=== PATIENT | male | born 1985 | race African-American/Black ===

== ENCOUNTER 2020-06-04 11:32 | Emergency (ER) | payer MEDICAID, SELFPAY ==
[~2020-06-04] VITALS: Ht 177.8 cm; Wt 81.2 kg
[~2020-06-04 11:32] MED LIST: IBUPROFEN600 MG ORAL; IBUPROFEN600 MG PO; NORCO 5-325 TA1 EACH ORAL
[2020-06-04 11:50] VITALS: BP 115/73
[2020-06-04 12:25] LABS: BASOPHILS % (AUTO) 0.5 % (0.0-2.0); EOSINOPHILS % (AUTO) 0.5 % (0.0-3.0); HEMATOCRIT 48.9 % (42.0-52.0); HEMOGLOBIN 16.9 G/DL (14.2-18.0); LYMPHOCYTES % (AUTO) 12.4 % (20.0-45.0); MEAN CORPUSCULAR VOLUME 88 FL (80-99); NEUTROPHILS % (AUTO) 81.6 % (45.0-75.0); PLATELET COUNT 272 K/UL (150-450); RED BLOOD COUNT 5.59 M/UL (4.70-6.10); RED CELL DISTRIBUTION WIDTH 13.7 % (11.6-14.8); WHITE BLOOD COUNT 11.4 K/UL (4.8-10.8)
[2020-06-04] MEDS ORDERED: Ketorolac 30mg Inj IV ONE (12:30)
[2020-06-04 13:05] LABS: ANION GAP 8 mmol/L (5-15); BLOOD UREA NITROGEN 12 mg/dL (7-18); CALCIUM 9.5 MG/DL (8.5-10.1); CARBON DIOXIDE 28 MMOL/L (21-32); CHLORIDE 99 MMOL/L (98-107); CREATININE 1.3 MG/DL (0.55-1.30); POTASSIUM 3.4 MMOL/L (3.5-5.1); SODIUM 135 MMOL/L (136-145)
[2020-06-04 13:10] LABS: ALANINE AMINOTRANSFERASE 36 U/L (12-78); ALBUMIN 4.2 G/DL (3.4-5.0); ALBUMIN/GLOBULIN RATIO 0.9 (1.0-2.7); ALKALINE PHOSPHATASE 95 U/L (46-116); ASPARTATE AMINO TRANSFERASE 65 U/L (15-37); BILIRUBIN,TOTAL 0.7 MG/DL (0.2-1.0)
[2020-06-04] MEDS ORDERED: DICYCLOMINE HCL10 MG ORAL (13:48)
[2020-06-04] MEDS ORDERED: FAMOTIDINE20 MG ORAL (13:48)
[2020-06-04] MEDS ORDERED: ONDANSETRON ODT4 MG BC (13:48)
[2020-06-04 14:07] VITALS: BP 122/76
--- NOTE | 2020-06-05 08:08 | Emergency Room Report ---
History of Present Illness General Chief Complaint: Abdominal Pain Source: Family Member Present Illness HPI 35-year-old male presents for evaluation. Brought in by family from home. Complaining of abdominal pain with nausea and vomiting for the last 3 days. Pain is epigastric, dull, 10 out of 10, nonradiating. Unable to keep any food down. Denies any diarrhea. Denies any fevers or chills. Denies chest pain. Allergies: Coded Allergies: No Known Allergies (Unverified , 09/11/13) COVID-19 Screening Contact w/high risk pt: No Experienced COVID-19 symptoms?: No COVID-19 Testing performed SURVEYOR CHAIN HELPER: No Patient History Past Medical History: none Past Surgical History: none Pertinent Family History: none Social History: Denies: smoking, alcohol use, drug use Immunizations: UTD Reviewed Nursing Documentation: PMH: Agreed; PSxH: Agreed Nursing Documentation-PMH Past Medical History: No History, Except For Review of Systems All Other Systems: negative except mentioned in HPI Physical Exam Vital Signs Date Time Temp Pulse Resp B/P (MAP) Pulse Ox O2 Delivery O2 Flow Rate FiO2 06/04/20 11:42 81 18 95/77 (83) 95 Room Air 06/04/20 11:50 97.6 Sp02 EP Interpretation: reviewed, normal General Appearance: no apparent distress, alert, GCS 15, non-toxic Head: normocephalic, atraumatic Eyes: bilateral eye normal inspection, bilateral eye PERRL ENT: hearing grossly normal, normal pharynx, no angioedema, normal voice Neck: full range of motion, supple/symm/no masses Respiratory: chest non-tender, lungs clear, normal breath sounds, speaking full sentences Cardiovascular #1: regular rate, rhythm, no edema Cardiovascular #2: 2+ carotid (R), 2+ carotid (L), 2+ radial (R), 2+ radial (L), 2+ dorsalis pedis (R), 2+ dorsalis pedis (L) Gastrointestinal: normal bowel sounds, soft, non-distended, no guarding, no rebound, tenderness - Epigastric Rectal: deferred Genitourinary: normal inspection, no CVA tenderness Musculoskeletal: back normal, normal range of motion, gait/station normal, non- tender Neurologic: alert, motor strength/tone normal, oriented x3, sensory intact, responsive, speech normal Psychiatric: judgement/insight normal, memory normal, mood/affect normal, no suicidal/homicidal ideation Reflexes: 3+ bicep (R), 3+ bicep (L), 3+ tricep (R), 3+ tricep (L), 3+ knee (R), 3+ knee (L) Lymphatic: no adenopathy Medical Decision Making Diagnostic Impression: Primary Impression: Nausea and vomiting Qualified Codes: R11.2 - Nausea with vomiting, unspecified ER Course Hospital Course 35-year-old male presents to ED with epigastric pain with N/V. differential diagnosis: gastritis, SBO, cholecystits Clinical course Patient placed on stretcher. On side puller. After initial history and physical I ordered labs, IV fluids, pepcid, zofran Labs - minimal leukocytosis, no electrolyte abnormalities, LFTs normal On reassessment patient feels better. Pain resolved. Abdomen soft. Tolerating p.o. intake. Safe for discharge with close outpatient follow-up states he has a PMD I feel this is a highly complex case requiring extensive working including EKG/Rhythm strip, Xray/CT/US, Blood/urine lab work, repeat exams while in ED, and administration of strong opiates/narcotics for pain control, admission to hospital or close patient follow up. Diagnosis - nausea and vomiting Stable and discharged to home with prescriptions for pepcid, zofran, bentyl. Followup with PMD. Return to ED if symptoms recur or worsen Laboratory Tests Test 06/04/20 11:56 White Blood Count 11.4 K/UL (4.8-10.8) H Red Blood Count 5.59 M/UL (4.70-6.10) Hemoglobin 16.9 G/DL (14.2-18.0) Hematocrit 48.9 % (42.0-52.0) Mean Corpuscular Volume 88 FL (80-99) Mean Corpuscular Hemoglobin 30.3 PG (27.0-31.0) Mean Corpuscular Hemoglobin Concent 34.6 G/DL (32.0-36.0) Red Cell Distribution Width 13.7 % (11.6-14.8) Platelet Count 272 K/UL (150-450) Mean Platelet Volume 5.9 FL (6.5-10.1) L Neutrophils (%) (Auto) 81.6 % (45.0-75.0) H Lymphocytes (%) (Auto) 12.4 % (20.0-45.0) L Monocytes (%) (Auto) 5.0 % (1.0-10.0) Eosinophils (%) (Auto) 0.5 % (0.0-3.0) Basophils (%) (Auto) 0.5 % (0.0-2.0) Sodium Level 135 MMOL/L (136-145) L Potassium Level 3.4 MMOL/L (3.5-5.1) L Chloride Level 99 MMOL/L (98-107) Carbon Dioxide Level 28 MMOL/L (21-32) Anion Gap 8 mmol/L (5-15) Blood Urea Nitrogen 12 mg/dL (7-18) Creatinine 1.3 MG/DL (0.55-1.30) Estimat Glomerular Filtration Rate > 60 mL/min (>60) Glucose Level 76 MG/DL (74-106) Calcium Level 9.5 MG/DL (8.5-10.1) Total Bilirubin 0.7 MG/DL (0.2-1.0) Aspartate Amino Transf (AST/SGOT) 65 U/L (15-37) H Alanine Aminotransferase (ALT/SGPT) 36 U/L (12-78) Alkaline Phosphatase 95 U/L (46-116) Total Protein 8.7 G/DL (6.4-8.2) H Albumin 4.2 G/DL (3.4-5.0) Globulin 4.5 g/dL Albumin/Globulin Ratio 0.9 (1.0-2.7) L Lipase 80 U/L (73-393) Last Vital Signs Date Time Temp Pulse Resp B/P (MAP) Pulse Ox O2 Delivery O2 Flow Rate FiO2 06/04/20 14:07 97.8 88 19 122/76 99 Room Air Status: improved Disposition: HOME, SELF-CARE Condition: Stable Scripts Dicyclomine Hcl* (DICYCLOMINE HCL*) 10 Mg Capsule 10 MG ORAL QID, #20 CAP Prov: Aram Jeffers MD 06/04/20 Famotidine* (Pepcid 20mg tablet*) 20 Mg Tablet 20 MG ORAL DAILY for Gerd, #30 TAB 0 Refills Prov: Aram Jeffers MD 06/04/20 Ondansetron Odt* (ZOFRAN ODT*) 4 Mg Tab.rapdis 4 MG BC EVERY 6 HOURS PRN for Nausea & Vomiting, #10 TAB 0 Refills Prov: Aram Jeffers MD 06/04/20 Referrals: NON PHYSICIAN (PCP) [facility] Patient Instructions: Gastritis, Adult, Abce-ai-Gvxy Aram Jeffers MD Jun 05, 2020 08:08
[2020-06-05] MEDS ORDERED: REGLAN10 MG ORAL ×2 (21:09→22:15)
== END 2020-06-04 14:08 | disposition home or self-care (01) ==
LOC: EMR 12:40
DX: R11.2 Nausea with vomiting, unspecified (principal)
CPT/HCPCS: 80053; 83690; 85025; 96361; 96374; 96375; J1885; J2405; S0028; Z7502; 99284

== ENCOUNTER 2020-06-05 20:11 | Emergency (ER) | payer MEDICAID ==
[~2020-06-05] VITALS: Ht 175.3 cm; Wt 81.2 kg
[~2020-06-05 20:11] MED LIST changes: +DICYCLOMINE HCL10 MG ORAL; +FAMOTIDINE20 MG ORAL; +ONDANSETRON ODT4 MG BC
--- NOTE | 2020-06-05 20:20 | NUR ---
ED Nurse Note: pt came into the Ed due to n/v x 4 days. pt stated; he believes he was poisoned a [employer] after eating at the resturant. pt been here for the same reason two days ago. vitalsa are stable, monitor on, A&Ox4, verbal and awake.
--- NOTE | 2020-06-05 20:22 | NUR ---
ED Nurse Note: Iv started; blood sent to the lab
[2020-06-05 20:25] VITALS: BP 140/69
[2020-06-05] MEDS ORDERED: DiphenhydrAMINE 50mg/ml Inj IVP ONE (20:30)
[2020-06-05] MEDS ORDERED: Metoclopramide 10mg/2ml Inj IVP ONE (20:30)
--- NOTE | 2020-06-05 20:32 | Emergency Room Report ---
History of Present Illness General Chief Complaint: Nausea, Vomiting, and Diarrhea Source: Patient Present Illness HPI Disclaimer: Please note that this report is being documented using DRAGON technology. This can lead to erroneous entry secondary to incorrect interpretation by the dictating instrument. HPI: 35-year-old male presents for evaluation of abdominal pain and vomiting. Symptoms began 3 days ago after eating fast food hamburger. He believes he has been poisoned. Reports persistent vomiting. Originally complained of diarrhea but states this is stopped. Unable to eat anything for the past 3 days. Unable to hold down water. Labs are within normal limits yesterday. He was prescribed famotidine, Zofran, Bentyl but he states it is not controlling his symptoms. More dry heaving now than actual vomiting since he has been unable to eat. Denies fever or chills. Denies chest pain. PMH: Denied PSH: Denied Allergies: Denied Social Hx: Denied Allergies: Coded Allergies: No Known Allergies (Unverified , 09/11/13) COVID-19 Screening Contact w/high risk pt: No Experienced COVID-19 symptoms?: Yes COVID-19 Testing performed FLIGHT AGENT: No Nursing Documentation-PMH Past Medical History: No History, Except For Review of Systems All Other Systems: negative except mentioned in HPI Physical Exam Vital Signs Date Time Temp Pulse Resp B/P (MAP) Pulse Ox O2 Delivery O2 Flow Rate FiO2 06/05/20 20:11 99.0 59 21 134/73 (93) 96 Room Air General: Awake and alert, no acute distress HEENT: NC/AT. EOMI. Cardiovascular: RRR. S1 and S2 normal. No murmur appreciated Resp: Normal work of breathing. No cough, wheezing or crackles appreciated Abdomen: Abdomen is soft, nondistended. Mild tenderness in the epigastrium. N egative Willams's. No masses. No rebound. Skin: Intact. No abrasions, laceration or rash over the exposed skin MSK: Normal tone and bulk. Moving all extremities. No obvious deformity. Neuro: Awake and alert. Mentating appropriately. Medical Decision Making Diagnostic Impression: Primary Impression: Nausea and vomiting Additional Impression: Gastroenteritis ER Course 35-year-old male presents for evaluation of nausea and vomiting. Differential includes was not limited to dehydration, electrolyte abnormality, food poisoning, gastritis, gastroenteritis, pancreatitis, cholecystitis among others. Labs again are unremarkable. The patient received IV fluids and antiemetics and symptoms are now controlled. Belly remains soft. No evidence of acute abdomen. Stable for outpatient follow-up. Prescribed Reglan in addition to Zofran to control his symptoms better. Instructed to return with new or worsening symptoms. Laboratory Tests Test 06/05/20 20:34 White Blood Count 10.8 K/UL (4.8-10.8) Red Blood Count 5.37 M/UL (4.70-6.10) Hemoglobin 16.1 G/DL (14.2-18.0) Hematocrit 44.5 % (42.0-52.0) Mean Corpuscular Volume 83 FL (80-99) Mean Corpuscular Hemoglobin 30.1 PG (27.0-31.0) Mean Corpuscular Hemoglobin Concent 36.3 G/DL (32.0-36.0) H Red Cell Distribution Width 14.2 % (11.6-14.8) Platelet Count 291 K/UL (150-450) Mean Platelet Volume 6.2 FL (6.5-10.1) L Neutrophils (%) (Auto) 73.2 % (45.0-75.0) Lymphocytes (%) (Auto) 19.7 % (20.0-45.0) L Monocytes (%) (Auto) 6.0 % (1.0-10.0) Eosinophils (%) (Auto) 0.2 % (0.0-3.0) Basophils (%) (Auto) 1.0 % (0.0-2.0) Sodium Level 132 MMOL/L (136-145) L Potassium Level 3.5 MMOL/L (3.5-5.1) Chloride Level 95 MMOL/L (98-107) L Carbon Dioxide Level 27 MMOL/L (21-32) Anion Gap 10 mmol/L (5-15) Blood Urea Nitrogen 15 mg/dL (7-18) Creatinine 1.3 MG/DL (0.55-1.30) Estimated Glomerular Filtration Rate > 60 mL/min (>60) Glucose Level 100 MG/DL (74-106) Calcium Level 9.2 MG/DL (8.5-10.1) Total Bilirubin 0.9 MG/DL (0.2-1.0) Aspartate Amino Transferase (AST) 150 U/L (15-37) H Alanine Aminotransferase (ALT) 53 U/L (12-78) Alkaline Phosphatase 88 U/L (46-116) Total Protein 8.2 G/DL (6.4-8.2) Albumin 4.0 G/DL (3.4-5.0) Globulin 4.2 g/dL Albumin/Globulin Ratio 1.0 (1.0-2.7) Lipase 143 U/L (73-393) Last Vital Signs Date Time Temp Pulse Resp B/P (MAP) Pulse Ox O2 Delivery O2 Flow Rate FiO2 06/05/20 20:11 99.0 59 21 134/73 (93) 96 Room Air Disposition: HOME, SELF-CARE Condition: Stable Scripts Metoclopramide Hcl* (REGLAN*) 10 Mg Tablet 10 MG ORAL THREE TIMES A DAY, #14 TAB Prov: Js Esteban M.D. 06/05/20 Metoclopramide Hcl* (REGLAN*) 10 Mg Tablet 10 MG ORAL THREE TIMES A DAY, #20 TAB Prov: Christopher Luis MD 06/05/20 Christopher Luis MD Jun 05, 2020 20:32
[2020-06-05] MEDS ORDERED: REGLAN10 MG ORAL ×2 (21:09→22:15)
[2020-06-05 21:26] LABS: EOSINOPHILS % (AUTO) 0.2 % (0.0-3.0); HEMATOCRIT 44.5 % (42.0-52.0); HEMOGLOBIN 16.1 G/DL (14.2-18.0); LYMPHOCYTES % (AUTO) 19.7 % (20.0-45.0); MEAN CORPUSCULAR VOLUME 83 FL (80-99); NEUTROPHILS % (AUTO) 73.2 % (45.0-75.0); PLATELET COUNT 291 K/UL (150-450); RED BLOOD COUNT 5.37 M/UL (4.70-6.10); RED CELL DISTRIBUTION WIDTH 14.2 % (11.6-14.8); WHITE BLOOD COUNT 10.8 K/UL (4.8-10.8)
[2020-06-05 21:42] LABS: ANION GAP 10 mmol/L (5-15); BLOOD UREA NITROGEN 15 mg/dL (7-18); CALCIUM 9.2 MG/DL (8.5-10.1); CARBON DIOXIDE 27 MMOL/L (21-32); CHLORIDE 95 MMOL/L (98-107); CREATININE 1.3 MG/DL (0.55-1.30); POTASSIUM 3.5 MMOL/L (3.5-5.1); SODIUM 132 MMOL/L (136-145)
[2020-06-05 21:46] LABS: ALANINE AMINOTRANSFERASE 53 U/L (12-78); ALKALINE PHOSPHATASE 88 U/L (46-116); ASPARTATE AMINO TRANSFERASE 150 U/L (15-37); BILIRUBIN,TOTAL 0.9 MG/DL (0.2-1.0)
--- NOTE | 2020-06-05 21:50 | NUR ---
Patients mother Dianelys Vela called and left her phone numbers to be called: [phone]
[2020-06-05 22:22] VITALS: BP 141/72
--- NOTE | 2020-06-05 22:23 | NUR ---
ER DISCHARGE NOTE: Patient is cleared to be discharged per ERMD, pt is aox4, on room air, with stable vital signs. pt was given dc and prescription instructions, pt was able to verbalize understanding, pt id band and iv site removed without complications. pt is able to ambulate with steady gait. pt took all belongings.
== END 2020-06-05 22:21 | disposition home or self-care (01) ==
LOC: EMR 20:47
DX: K52.9 Noninfective gastroenteritis and colitis, unspecified (principal)
CPT/HCPCS: 36415; 80053; 83690; 85025; 96361; 96374; 96375; J1200; J2765; J7030; S0028; Z7502; 99284